=== PATIENT | male | born 1960 | race Caucasian/White ===

== ENCOUNTER 2017-10-12 12:42 | Emergency (ER) | END 2017-10-12 19:42 | disposition home or self-care (01) ==

== ENCOUNTER 2017-11-15 17:15 | Emergency (ER) | END 2017-11-16 02:38 | disposition home or self-care (01) ==

== ENCOUNTER 2019-01-15 20:17 | Inpatient (IN) | payer BC ==
[~2019-01-15] VITALS: Ht 167.6 cm; Wt 77.1 kg
[~2019-01-15 20:17] MED LIST: AMLO-218 PO; CPR3OO3.5 LEFT EYE; HYDR-3980 PO
--- NOTE | 2019-01-15 20:28 | ERD ---
ER Documentation Chief Complaint Chief Complaint Low blood pressure HPI The patient is a 58-year-old male, presenting to the ER because of low blood pressure, not eating for the last 4 days. He is under hospice care but the hospice nurse asked the family to call 911 to bring him to the hospital. He is unable to provide any history, the history is obtained from the EMS and medical record Past medical history: Cirrhosis, hypertension Past surgical history/SH/ROS: Unable to obtain due to his condition ROS All systems reviewed and are negative except as per history of present illness. Medications Home Meds Active Scripts Ciprofloxacin Opht* (Ciloxan*) 0.3%-3.5 Opht Oint, 1 APPLIC LEFT EYE TID, #1 EA Prov:LEKKOS,APOSTOLOS A. DO 10/12/17 Hydrocodone/Acetaminophen ([place] 10-325 Tablet) 1 Each Tablet, 1 TAB PO Q6H PRN for PAIN, #20 TAB Prov:LEKKOS,APOSTOLOS A. DO 10/12/17 Amlodipine Besylate* (Norvasc*) 10 Mg Tablet, 10 MG PO DAILY, #30 TAB Prov:LEKKOS,APOSTOLOS A. DO 10/12/17 Allergies Allergies: Coded Allergies: No Known Allergy (Unverified , 10/12/17) PMhx/Soc History of Surgery: Yes (neck) Anesthesia Reaction: No Hx Neurological Disorder: No Hx Respiratory Disorders: No Hx Cardiac Disorders: Yes (htn) Hx Psychiatric Problems: No Hx Miscellaneous Medical Probl: Yes Hx Alcohol Use: Yes Hx Substance Use: No Hx Tobacco Use: No Physical Exam Vitals Vital Signs Date Temp Pulse Resp B/P (MAP) Pulse Ox O2 O2 Flow FiO2 Time Delivery Rate 01/15/19 85 18 104/62 100 Room Air 22:30 (76) 01/15/19 99.0 69 18 127/68 97 20:28 (87) Physical Exam Const: No acute distress. Jaundice Head: Atraumatic. Eyes: Normal Conjunctiva. ENT: Normal External Ears, Nose and Mouth. Neck: Full range of motion. No meningismus. Resp: Clear to auscultation bilaterally. Cardio: Regular rate and rhythm. Abd: Soft, ascites, normal bowel sounds, non tender. Skin: No petechiae or rashes. Back: No midline or flank tenderness. Ext: Mild leg edema, no calf tenderness Neur: Awake. Limited due to his condition Psych: Unable to perform due to his condition Result Diagram: 01/15/19212101/15/192121 Results 24 hrs Laboratory Tests Test 01/15/19 21:22 01/15/19 21:46 White Blood Count 12.1 10^3/ul Red Blood Count 1.84 10^6/ul Hemoglobin 5.4 g/dl Hematocrit 15.4 % Mean Corpuscular Volume 83.7 fl Mean Corpuscular Hemoglobin 29.3 pg Mean Corpuscular Hemoglobin Concent 35.1 g/dl Red Cell Distribution Width 19.5 % Platelet Count 111 10^3/UL Mean Platelet Volume 11.4 fl Immature Granulocytes % 0.700 % Neutrophils % 65.7 % Lymphocytes % 20.1 % Monocytes % 11.9 % Eosinophils % 1.1 % Basophils % 0.5 % Nucleated Red Blood Cells % 0.0 /100WBC Immature Granulocytes # 0.090 10^3/ul Neutrophils # 8.0 10^3/ul Lymphocytes # 2.4 10^3/ul Monocytes # 1.4 10^3/ul Eosinophils # 0.1 10^3/ul Basophils # 0.1 10^3/ul Nucleated Red Blood Cells # 0.0 10^3/ul Prothrombin Time 26.7 Sec Prothrombin Time Ratio 2.1 INR International Normalized Ratio 2.46 Activated Partial Thromboplast Time 49.9 Sec Sodium Level 140 mmol/L Potassium Level 4.5 mmol/L Chloride Level 114 mmol/L Carbon Dioxide Level 14 mmol/L Anion Gap 12 Blood Urea Nitrogen 46 mg/dl Creatinine 4.70 mg/dl Est Glomerular Filtrat Rate mL/min 13 mL/min Glucose Level 112 mg/dl Calcium Level 8.3 mg/dl Total Bilirubin 2.8 mg/dl Direct Bilirubin 1.10 mg/dl Indirect Bilirubin 1.7 mg/dl Aspartate Amino Transf (AST/SGOT) 75 IU/L Alanine Aminotransferase (ALT/SGPT) 31 IU/L Alkaline Phosphatase 125 IU/L Ammonia 38 umol/l Total Protein 6.2 g/dl Albumin 2.4 g/dl Globulin 3.80 g/dl Albumin/Globulin Ratio 0.63 Lipase 69 U/L Ethyl Alcohol Level < 10.0 mg/dl Bedside Urine pH (LAB) 5.5 Bedside Urine Protein (LAB) 1+ Bedside Urine Glucose (UA) Negative Bedside Urine Ketones (LAB) Trace Bedside Urine Blood Negative Bedside Urine Nitrite (LAB) Negative Bedside Urine Leukocyte Esterase (L Negative Procedures/MDM [place] [id number] Radiology Main Line: [phone] DIAGNOSTIC IMAGING REPORT Patient: LESLY KNUTSON : 1960 Age: 58 Sex: M MR #: [id number] DOS: 01/15/192032 Ordering MD: DONOVAN GOTTLIEB MD Location: E/R Room/Bed: PROCEDURE: XR Chest. TECHNIQUE: Single frontal radiograph. CLINICAL INDICATION: Abdominal Pain COMPARISON: DR OCMER 11/15/2017. FINDINGS: There is effacement of the left hemidiaphragm and costophrenic angle with increased retrocardiac opacity consistent with a combination of pleural effusion and atelectasis / consolidation. There is adjacent atelectasis in the aerated left lung with layering of the pleural effusion elevation of the right hemidiaphragm with low lung volumes. No pneumothorax. Cardiac silhouette likely remains enlarged, though the lateral inferior cardiac borders are obscured. No acute osseous abnormality identified within the visualized thorax. Overlying soft tissues are equally unremarkable. IMPRESSION: Left pleural effusion and adjacent atelectasis / consolidation with effacement of the left costophrenic angle and increased retrocardiac opacity. Low lung volumes with elevation of the right hemidiaphragm. Cardiomegaly, with obscuration of the left lateral and inferior cardiac borders. RPTAT: EE Physician [place] Date Time Electronically viewed and signed by Physician Africa on 01/15/2019 21:03 BP/ CC: DONOVAN GOTTLIEB MD [phone] MEDICAL MAKING DECISION: The patient is a 58-year-old male, presenting with acute symptomatic anemia, left pleural effusion, acute kidney injury, pancytopenia. I have ordered to transfer the patient 2 unit of packed red blood cell The differential diagnoses considered include but are not limited to end-stage liver disease, metabolic encephalopathy, hepatic encephalopathy, electrolyte imbalance, gastrointestinal bleeding Departure Diagnosis: Primary Impression: Symptomatic anemia Additional Impressions: Pleural effusion, left KARY (acute kidney injury) Pancytopenia Coagulopathy Condition: Serious Comments I discussed the findings with the patient. I am waiting for the hospitalist to admit the patient Disclaimer: Inadvertent spelling and grammatical errors are likely due to EHR/dictation software use and do not reflect on the overall quality of patient care. Also, please note that the electronic time recorded on this note does not necessarily reflect the actual time of the patient encounter. DONOVAN GOTTLIEB MD Jan 15, 2019 20:28
[2019-01-16] VITALS (19 sets, daily range): BP systolic 121–140; BP diastolic 61–80; PULSE 52–76; RESP 18–20; Ht 167.6 cm; Wt 77.1 kg
[2019-01-16] MEDS ORDERED: FURO20TA3 PO (00:07)
[2019-01-16] MEDS ORDERED: ACET325T45 PO (00:07)
[2019-01-16] MEDS ORDERED: FLUD0.1T10 PO (00:07)
[2019-01-16] MEDS ORDERED: HYOS0.1297 PO (00:07)
[2019-01-16] MEDS ORDERED: LACT20SO2 PO (00:07)
[2019-01-16] MEDS ORDERED: FAMO20TA18 PO (00:07)
[2019-01-16] MEDS ORDERED: LORA0.5T PO (00:07)
[2019-01-16] MEDS ORDERED: POTA20TA15 PO (00:07)
[2019-01-16] MEDS ORDERED: ACETAMINOPHEN 325 MG TAB PO PRN (04:00)
[2019-01-16] MEDS ORDERED: LORAZEPAM 0.5 MG TAB PO PRN (04:00)
[2019-01-16] MEDS: HYOSCYAMINE 0.125 MG SUBL TAB PO SCH (08:36)
[2019-01-16] MEDS ORDERED: POTASSIUM CHLORIDE (SR) 20 MEQ TAB PO SCH (09:00)
[2019-01-16] MEDS ORDERED: FUROSEMIDE 20 MG TAB PO SCH (09:00)
[2019-01-16] MEDS ORDERED: FAMOTIDINE 20 MG TAB PO SCH (09:00)
[2019-01-16] MEDS ORDERED: LACTULOSE 30ML CUP PO SCH (09:00)
--- NOTE | 2019-01-16 09:33 | CONS ---
Assessment/Plan Assessment/Plan Assessment/Plan (Daily) 1. Severe symptomatic anemia concerned about GI bleeding 2. acute kidney injury on CKD due to possible poor renal perfusion from decompensated liver cirrhosis vs Type II HRS 3. Symptomatic ascites s/p US guided paracentesis on 01/16/19- 6.9 L removed 4. ESLD with ascites 5. Decompensated liver cirrhosis 6. H/o Alcoholic liver cirrhosis 7. Coagulopathy due to liver cirrhosis Plan: Seen in MEd/surge floor, s/p paracentesis 6.9 L removed will give albumin 25% 100ml Q 8 hr x 6 doses vitamin K 10mg IV X 1 dose now Vitamin K 10mg po daily x 3 doses for coagulopathy Hold off on lasix and KCL for now no acute indication for HD now, [facility] Thanks for consultaiton pt will be covered by Dr. Ezra Adams from 01/17/19 until I come back Consultation Date/Type/Reason Admit Date/Time Jan 16, 2019 at 00:19 Date of Consultation: Jan 16, 2019 Type of Consult NEPHROLOGY Reason for Consultation acute renal failure Requesting Provider: RACHEL CRUZ MD Date/Time of Note DATE: 01/16/19 TIME: 09:32 Hx of Present Illness 58 years old male with history of decompensated alcoholic liver cirrhosis with recent admission to [facility] for fall which was complicated by hepatorenal syndrome and ascites requiring large volume paracentesis x2. He was discharged to senior living facility on 12/30. Patient returned to the emergency room at [facility] with hypotension and poor p.o. tolerance for 4 days. He was noted to be anemic with hemoglobin 5.4. He was admitted for further management of symptomatic anemia. Patient denies any recent GI bleeding. On admisison BUN/Cr 46/4.7, K 4.5, HCo3 14- Renal has been consulted for acute vs acute on chronic renal failure, possible hepatorenal syndrome, Constitutional: poor po, other (low BP ) Past Medical History Medical History: other (Live cirrhosis, ESLD , ascites ) Home Meds Reported Medications Potassium Chloride* (K-Dur*) 20 Meq Tab.prt.sr, 20 MEQ PO DAILY TAKE 1 TABLET BY MOUTH ONCE DAILY 01/16/19 Famotidine* (Famotidine*) 20 Mg Tablet, 20 MG PO DAILY TAKE 1 TABLET BY MOUTH ONCE DAILY 01/16/19 Furosemide* (Furosemide*) 20 Mg Tablet, 20 MG PO DAILY for 30 Days, #30 TAKE 1 TABLET BY MOUTH ONCE DAILY 01/16/19 Hyoscyamine Sulfate* (Hyoscyamine Sulfate*) 0.125 Mg Tab.subl, 0.125 MG PO DAILY for 30 Days, #30 TAKE 1 TABLET SUBLINGUALLY EVERY 4 HOURS NEEDED FOR SECRETIONS 01/16/19 Acetaminophen* (Acetaminophen*) 325 Mg Tablet, 650 MG PO DAILY PRN for PAIN for 7 Days, #14 TAKE 2 TABLETS BY MOUTH EVERY 6 HOURS NEEDED FOR FEVER OR MILD PAIN 01/16/19 Lorazepam* (Lorazepam*) 0.5 Mg Tablet, 0.5 MG PO Q4H PRN for ANXIETY TAKE 1 TABLET SUBLINGUALLY EVERY 4 HOURS NEEDED FOR ANXIETY 01/16/19 Lactulose* (Lactulose*) 20 Gm/30 Ml Solution, 20 GM PO TID, ML 01/16/19 Fludrocortisone* (Fludrocortisone*) 0.1 Mg Tablet, 0.2 MG PO DAILY, TAB TAKE 2 TABS BY MOUTH DAILY 01/16/19 Discontinued Scripts Ciprofloxacin Opht* (Ciloxan*) 0.3%-3.5 Opht Oint, 1 APPLIC LEFT EYE TID, #1 EA Prov:JAMES BENNETT DO 10/12/17 Hydrocodone/Acetaminophen ([place] 10-325 Tablet) 1 Each Tablet, 1 TAB PO Q6H PRN for PAIN, #20 TAB Prov:JAMES BENNETT DO 10/12/17 Amlodipine Besylate* (Norvasc*) 10 Mg Tablet, 10 MG PO DAILY, #30 TAB Prov:JAMES BENNETT. DO 10/12/17 Medications Current Medications Acetaminophen (Tylenol Tab) 650 mg DAILY PRN PO PAIN; Start 01/16/19 at 04:00 Famotidine (Pepcid) 20 mg DAILY PO Last administered on 01/16/19at 08:35; Admin Dose 20 MG; Start 01/16/19 at 09:00 Furosemide (Lasix) 20 mg DAILY PO Last administered on 01/16/19at 08:36; Admin Dose 20 MG; Start 01/16/19 at 09:00 Hyoscyamine (Levsin (Sl)) 0.125 mg DAILY PO Last administered on 01/16/19at 08:36; Admin Dose 0.125 MG; Start 01/16/19 at 09:00 Lactulose (Enulose) 20 gm TID PO Last administered on 01/16/19at 08:36; Admin Dose 20 GM; Start 01/16/19 at 09:00 Lorazepam (Ativan) 0.5 mg Q4H PRN PO ANXIETY; Start 01/16/19 at 04:00 Potassium Chloride (Klor-Con 20) 20 meq DAILY PO Last administered on 01/16/19at 08:36; Admin Dose 20 MEQ; Start 01/16/19 at 09:00 Allergies: Coded Allergies: No Known Allergy (Unverified , 01/15/19) Past Surgical History Past Surgical Hx: other (paracentesis x 2 ) Social History Alcohol Use: none Smoking Status: Former smoker Drug Use: none Exam/Review of Systems Exam Vitals Vital Signs Date Temp Pulse Resp B/P (MAP) Pulse Ox O2 O2 Flow FiO2 Time Delivery Rate 01/16/19 98.2 75 18 129/66 100 03:10 (87) 01/16/19 Room Air 02:49 Intake and Output 01/15/19 01/15/19 01/16/19 1515:00 23:00 07:00 IntakeIntake Total 350 ml BalanceBalance 350 ml Constitutional: distress, frail, other Psych: confusion, other (lethrargic ) Neck: supple, non-tender Respiratory: congested cough, diminished breath sounds Cardiovascular: regular rate and rhythm, nl pulses Gastrointestinal: soft, ascites, distended Musculoskeletal: muscle weakness, swelling (2-3+ pitting edema ) Extremities: normal pulses Neurological: confused, lethargic Results Result Diagram: 01/15/19212101/15/192121 Results 24hrs Laboratory Tests Test 01/15/19 21:22 01/15/19 21:36 01/15/19 21:46 White Blood Count 12.1 H Red Blood Count 1.84 #L Hemoglobin 5.4 #*L Hematocrit 15.4 #L Mean Corpuscular Volume 83.7 Mean Corpuscular Hemoglobin 29.3 Mean Corpuscular Hemoglobin Concent 35.1 Red Cell Distribution Width 19.5 #H Platelet Count 111 #L Mean Platelet Volume 11.4 H Immature Granulocytes % 0.700 H Neutrophils % 65.7 Lymphocytes % 20.1 Monocytes % 11.9 H Eosinophils % 1.1 Basophils % 0.5 Nucleated Red Blood Cells % 0.0 Immature Granulocytes # 0.090 H Neutrophils # 8.0 H Lymphocytes # 2.4 Monocytes # 1.4 H Eosinophils # 0.1 Basophils # 0.1 Nucleated Red Blood Cells # 0.0 Prothrombin Time 26.7 H Prothrombin Time Ratio 2.1 INR International Normalized Ratio 2.46 Activated Partial Thromboplast Time 49.9 H Sodium Level 140 Potassium Level 4.5 Chloride Level 114 H Carbon Dioxide Level 14 L Anion Gap 12 Blood Urea Nitrogen 46 H Creatinine 4.70 H Est Glomerular Filtrat Rate mL/min 13 L Glucose Level 112 Calcium Level 8.3 L Total Bilirubin 2.8 H Direct Bilirubin 1.10 H Indirect Bilirubin 1.7 H Aspartate Amino Transf (AST/SGOT) 75 H Alanine Aminotransferase (ALT/SGPT) 31 Alkaline Phosphatase 125 H Ammonia 38 H Total Protein 6.2 Albumin 2.4 L Globulin 3.80 H Albumin/Globulin Ratio 0.63 Lipase 69 Ethyl Alcohol Level < 10.0 H Urine Opiates Screen POSITIVE Urine Barbiturates NEGATIVE Urine Amphetamines Screen NEGATIVE Urine Benzodiazepines Screen NEGATIVE Urine Cocaine Screen NEGATIVE Urine Cannabinoids NEGATIVE Bedside Urine pH (LAB) 5.5 Bedside Urine Protein (LAB) 1+ H Bedside Urine Glucose (UA) Negative Bedside Urine Ketones (LAB) Trace H Bedside Urine Blood Negative Bedside Urine Nitrite (LAB) Negative Bedside Urine Leukocyte Esterase (L Negative Medications Medication Current Medications Acetaminophen (Tylenol Tab) 650 mg DAILY PRN PO PAIN; Start 01/16/19 at 04:00 Famotidine (Pepcid) 20 mg DAILY PO Last administered on 01/16/19 08:35; Admin Dose 20 MG; Start 01/16/19 at 09:00 Furosemide (Lasix) 20 mg DAILY PO Last administered on 01/16/19 08:36; Admin Dose 20 MG; Start 01/16/19 at 09:00 Hyoscyamine (Levsin (Sl)) 0.125 mg DAILY PO Last administered on 01/16/19 08:36; Admin Dose 0.125 MG; Start 01/16/19 at 09:00 Lactulose (Enulose) 20 gm TID PO Last administered on 01/16/19 08:36; Admin Dose 20 GM; Start 01/16/19 at 09:00 Lorazepam (Ativan) 0.5 mg Q4H PRN PO ANXIETY; Start 01/16/19 at 04:00 Potassium Chloride (Klor-Con 20) 20 meq DAILY PO Last administered on 01/16/19at 08:36; Admin Dose 20 MEQ; Start 01/16/19 at 09:00 BROOKS LUNA MD Jan 16, 2019 09:33
--- NOTE | 2019-01-16 10:38 | HP ---
Date/Time of Note Date/Time of Note DATE: 01/16/19 TIME: 10:36 Assessment/Plan VTE Prophylaxis SCD applied (from Nsg): Yes Pharmacological prophylaxis: NA/contraindicated Pharm contraindication: bleeding Lines/Catheters IV Catheter Type (from Nrsg): Peripheral IV Urinary Cath still in place: Yes Reason Cath still needed: terminal illness/intractable pain Assessment/Plan Hospital Course 58 years old male with decompensated alcoholic liver cirrhosis who presented with symptomatic anemia, tense ascites and hepatorenal syndrome. #Symptomatic anemia - Rule out GI bleeding due to portal hypertensive gastropathy, given history of liver cirrhosis, GI consulted - 3 units PRBC to be transfused - PPI for prophylaxis -prophylactic ceftriaxone # Coagulopathy due to decompensated cirrhosis - Monitor -Vitamin K and FFP in case of profuse bleeding # KARY (acute kidney injury) #Hepatorenal syndrome -Renal consult: IV albumin infusion and paracentesis ordered #Hyperammonemia -Lactulose and rifaximin #Ascites -Centesis and albumin infusion #PPX: PPI and SCDs Problems: (1) Symptomatic anemia Status: Acute (2) KARY (acute kidney injury) Status: Acute (3) Hepatorenal syndrome (4) Coagulopathy Status: Acute (5) Hyperammonemia (6) Alcoholic cirrhosis of liver (7) Ascites (8) Anasarca (9) Pleural effusion, left Status: Acute Result Diagram: 01/15/19212101/15/192121 Results 24hrs Laboratory Tests Test 01/15/19 21:22 01/15/19 21:36 01/15/19 21:46 01/16/19 09:57 White Blood Count 12.1 H Red Blood Count 1.84 #L Hemoglobin 5.4 #*L Hematocrit 15.4 #L Mean Corpuscular 83.7 Volume Mean Corpuscular 29.3 Hemoglobin Mean Corpuscular 35.1 Hemoglobin Concen t Red Cell 19.5 #H Distribution Width Platelet Count 111 #L Mean Platelet 11.4 H Volume Immature 0.700 H Granulocytes % Neutrophils % 65.7 Lymphocytes % 20.1 Monocytes % 11.9 H Eosinophils % 1.1 Basophils % 0.5 Nucleated Red 0.0 Blood Cells % Immature 0.090 H Granulocytes # Neutrophils # 8.0 H Lymphocytes # 2.4 Monocytes # 1.4 H Eosinophils # 0.1 Basophils # 0.1 Nucleated Red 0.0 Blood Cells # Prothrombin Time 26.7 H Prothrombin Time 2.1 Ratio INR International 2.46 Normalized Ratio Activated 49.9 H Partial Thrombopl ast Time Sodium Level 140 Potassium Level 4.5 Chloride Level 114 H Carbon Dioxide 14 L Level Anion Gap 12 Blood Urea 46 H Nitrogen Creatinine 4.70 H Est Glomerular 13 L Filtrat Rate mL/min Glucose Level 112 Calcium Level 8.3 L Total Bilirubin 2.8 H Direct Bilirubin 1.10 H Indirect 1.7 H Bilirubin Aspartate Amino 75 H Transf (AST/SGOT) Alanine 31 Aminotransferase (ALT/SGPT) Alkaline 125 H Phosphatase Ammonia 38 H Total Protein 6.2 Albumin 2.4 L Globulin 3.80 H Albumin/Globulin 0.63 Ratio Lipase 69 Ethyl Alcohol < 10.0 H Level Urine Opiates POSITIVE Screen Urine NEGATIVE Barbiturates Urine NEGATIVE Amphetamines Screen Urine NEGATIVE Benzodiazepines Screen Urine Cocaine NEGATIVE Screen Urine NEGATIVE Cannabinoids Bedside Urine pH 5.5 (LAB) Bedside Urine 1+ H Protein (LAB) Bedside Urine Negative Glucose (UA) Bedside Urine Trace H Ketones (LAB) Bedside Urine Negative Blood Bedside Urine Negative Nitrite (LAB) Bedside Urine Negative Leukocyte Esteras e (L Lab Scanned BLOOD TRANSFUSIO Report N HPI/ROS Admit Date/Time Admit Date/Time Jan 16, 2019 at 00:19 Hx of Present Illness 58 years old male with history of decompensated alcoholic liver cirrhosis with recent admission to [facility] for fall which was complicated by hepa torenal syndrome and ascites requiring large volume paracentesis x2. [facility] was [facility] on 12/30. Patient returned to the emergency room at [facility] with hypotension and poor p.o. tolerance for 4 days. He was noted to be anemic with hemoglobin 5.4. He was admitted for further management of symptomatic anemia. Patient denies any recent GI bleeding. He denies hematochezia, melena, hematemesis. Denies hematuria. PMH/Family/Social Past Medical History Medications Current Medications Acetaminophen (Tylenol Tab) 650 mg DAILY PRN PO PAIN; Start 01/16/19 at 04:00 Famotidine (Pepcid) 20 mg DAILY PO Last administered on 01/16/19at 08:35; Admin Dose 20 MG; Start 01/16/19 at 09:00 Furosemide (Lasix) 20 mg DAILY PO Last administered on 01/16/19at 08:36; Admin Dose 20 MG; Start 01/16/19 at 09:00 Hyoscyamine (Levsin (Sl)) 0.125 mg DAILY PO Last administered on 01/16/19at 08:36; Admin Dose 0.125 MG; Start 01/16/19 at 09:00 Lorazepam (Ativan) 0.5 mg Q4H PRN PO ANXIETY; Start 01/16/19 at 04:00 Potassium Chloride (Klor-Con 20) 20 meq DAILY PO Last administered on 01/16/19at 08:36; Admin Dose 20 MEQ; Start 01/16/19 at 09:00 Lactulose (Enulose) 30 gm Q6 PO ; Start 01/16/19 at 12:00 Coded Allergies: No Known Allergy (Unverified , 01/15/19) Social History Smoking Status: Former smoker Exam/Review of Systems Vital Signs Vitals Vital Signs Date Temp Pulse Resp B/P (MAP) Pulse Ox O2 O2 Flow FiO2 Time Delivery Rate 01/16/19 97.8 76 18 121/72 94 Room Air 09:34 (88) Intake and Output 01/15/19 01/15/19 01/16/19 1515:00 23:00 07:00 IntakeIntake Total 350 ml BalanceBalance 350 ml Exam Exam Gen.: In no acute distress, pleasant and cooperative, debilitated and cachectic Eyes: icteric, conjunctiva pale, PERRLA, EOM intact HEENT: Normocephalic, atraumatic, hearing grossly intact, oral mucosa dry, no oral lesions, bitemporal wasting Neck: Supple, no masses, trachea midline Cardiovascular: Regular rate and rhythm, there is peripheral edema, no murmurs, no gallops, no rubs Respiratory: Clear to auscultation bilaterally, no use of accessory muscles of respiration, no wheezes, expiration not prolonged Extremities: No cyanosis, severe bilateral lower extremity edema, no calf tenderness, pulses bilaterally palpable, extremities warm and perfused Abdomen: Hard, distended, nontender, bowel sounds present, no guarding, no rebound Neurological: Alert and oriented x3, speech normal, CN 2-12 no deficit, no motor or sensory deficit, : Lua catheter containing dark yellow urine Heme: No acute bleeding, Psych: No anxiety depression, mood and affect appropriate RACHEL CRUZ MD Jan 16, 2019 10:38
[2019-01-16] MEDS: ALBUMIN HUMAN 25% 100 ML IV SCH ×2 (11:00→20:17)
[2019-01-16] MEDS ORDERED: PHYTONADIONE 10 MG in DEXTROSE 5% 50 ML IVPB ONE (11:00)
[2019-01-16] MEDS: LACTULOSE 30ML CUP PO SCH ×3 (12:00→23:52)
[2019-01-16] MEDS ORDERED: LIDOCAINE 1% (MPF) 5 ML VIAL ONE (12:20)
[2019-01-16] MEDS: CEFTRIAXONE 1 GM/50 ML (PMX) 50 ML IVPB SCH (16:12)
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
[2019-01-16] MEDS ORDERED: PANTOPRAZOLE 40 MG INJ IV SCH (18:00)
[2019-01-16] MEDS: RIFAXIMIN 550 MG TAB PO SCH (20:46)
[2019-01-16] MEDS: CITRIC ACID/NA CITRATE 30 ML CUP PO SCH (20:46)
[2019-01-16] MEDS: ONDANSETRON 4 MG INJ IV PRN (22:56)
[2019-01-17 02:20] VITALS: BP 135/70; PULSE 66; RESP 18
[2019-01-17] MEDS: ALBUMIN HUMAN 25% 100 ML IV SCH ×2 (03:29→10:42)
[2019-01-17] MEDS ORDERED: FAMOTIDINE 20 MG INJ IV SCH (06:00)
[2019-01-17] MEDS: LACTULOSE 30ML CUP PO SCH ×2 (06:04→11:24)
[2019-01-17 08:00] VITALS: BP 139/68; PULSE 72; RESP 17
[2019-01-17] MEDS: ONDANSETRON 4 MG INJ IV PRN (08:47)
[2019-01-17] MEDS ORDERED: PHYTONADIONE (1 MG/ML PO SYG) PO SCH (09:00)
[2019-01-17] MEDS: RIFAXIMIN 550 MG TAB PO SCH (09:00)
[2019-01-17] MEDS: CITRIC ACID/NA CITRATE 30 ML CUP PO SCH (09:00)
[2019-01-17] MEDS: HYOSCYAMINE 0.125 MG SUBL TAB PO SCH (09:00)
--- NOTE | 2019-01-17 09:07 | PN ---
DATE: 01/17/2019 NEPHROLOGY PROGRESS NOTE: Covering for Dr. Ronald Bailey. SUBJECTIVE: The patient remains weak, lethargic. Overnight, the patient was having nausea, vomiting . No reports of hemoptysis, hematemesis or hematochezia. OBJECTIVE: VITAL SIGNS: Blood pressure is 135/70, respiration 18, pulse 66, temperature 98.2. HEENT: Head is normocephalic. NECK: Supple. HEART: Regular rate. LUNGS: Show diminished breath sounds at the base. ABDOMEN: Distended, soft. No rebound or guarding. EXTREMITIES: Negative for clubbing, cyanosis. Positive edema. DERMATOLOGIC: No rashes. MUSCULOSKELETAL: No joint effusions. NEUROLOGIC: No change in exam. No obvious focal deficits. MEDICATIONS: Have been reviewed. LABORATORY DATA: Has been reviewed. IMAGING STUDIES: Have been reviewed. Please note patient had paracentesis yesterday with approximately 7 liters removed. ASSESSMENT AND PLAN: This is a 58-year-old male who presents with: 1. Nonoliguric acute kidney injury on top of chronic kidney disease. Etiology of acute kidney injur y is concerning for possible hepatorenal syndrome. Other possibilities such as tubular injury or int erstitial nephritis and volume depletion need to also be ruled out. Plan at this point is to check a UA with microanalysis, check urine electrolytes. We will quantify patient's proteinuria. We will a lso check a renal ultrasound to evaluate renal parenchyma, given that hepatorenal syndrome is a diagn osis of exclusion. At this point, would continue current treatment plan with volume expansion. Will monitor renal function closely. Will need to further clarify goals of care with primary care team. 2. Anemia. Continue to monitor hemoglobin and hematocrit levels. 3. Metabolic acidosis secondary to acute kidney injury. The patient is currently on Bicitra, will c ontinue. 4. Systemic inflammatory response syndrome. Continue to monitor. Follow up cultures. 5. End-stage liver disease. The patient is currently decompensated with ascites. Status post parac entesis. Will continue to monitor. Continue volume expansion. 6. Nausea, vomiting. Etiology may be multifactorial, possible uremia, possible bowel edema. Will c ontinue to monitor. 7. Coagulopathy secondary to cirrhosis. The patient is status post vitamin K. . Dictated By: FAUSTINO SORIA/RASHEED Conf#: [id number] [facility]#: [id number] CC: DAQUAN MENDIOLA MD;*End*
[2019-01-17] MEDS ORDERED: ALBUMIN HUMAN 25% 100 ML IV SCH (09:30)
--- NOTE | 2019-01-17 11:05 | PN ---
Date/Time of Note Date/Time of Note DATE: 01/17/19 TIME: 10:56 Assessment/Plan VTE Prophylaxis Risk score (from Nsg)>0 risk: 4 SCD applied (from Nsg): Yes Pharmacological prophylaxis: other (scds) Lines/Catheters IV Catheter Type (from Nrsg): Peripheral IV Urinary Cath still in place: Yes Reason Cath still needed: other (indicate) (scds) Assessment/Plan Hospital Course Summary Assessment and Plan: Assessment: Symptomatic anemia Decompensated alcoholic liver cirrhosis -Status post paracentesis 01/16/2019 with removal of 6900 mL Elevated LFTs with a slightly higher indirect versus direct hyperbilirubinemia Coagulopathy due to decompensated cirrhosis KARY Plan: Spoke to family and hospice nurse- plan for pleural catheter placement and transfer patient back to SNF on hospice No plan for EGDE/colonoscopy- GI will sign off but will be available upon recon sult Patient is seen in collaboration with Dr. Carrillo Subjective: Course reviewed with nursing staff Patient interviewed and examined All labs, imaging and other results reviewed The patient alert resting in bed Family at bedside. No over night events PHYSICAL EXAMINATION: GENERAL: Alert & oriented x 3, in no acute distress SKIN: No lesions, HEAD: Normocephalic, atraumatic, no tenderness. EYES: Pupils equal reactive to light and accommodation, no discharge. EARS/NOSE AND THROAT: Ears normal, nose normal, oropharynx normal. NECK: Supple, no masses CHEST: Inspection within normal limits. CARDIOVASCULAR: Heart: Regular rate and rhythm RESPIRATORY: Lungs clear to auscultation and percussion, no wheezing, no rubs GASTROINTESTINAL AND LIVER: Abdomen: Soft, non tenderness, non-distended, no hernias, no masses, no organomegaly, no ascites, no guarding, no rebound tenderness, normoactive bowel sounds. Rectal: Deferred. EXTREMITIES: No cyanosis, clubbing or edema. Result Diagram: 01/17/19 0454 01/17/19 0454 Results 24hrs Laboratory Tests Test 01/16/19 12:00 01/16/19 19:02 01/17/19 04:54 01/17/19 06:34 Body Fluid Type PARACENTHESIS Body Fluid 1100.0 Volume Body Fluid Color YELLOW Body Fluid HAZY Appearance Body Fluid WBC 85 Body Fluid RBC 1000 (Auto) Body Fluid 29.4 Polynuclear WBCs (%) Body Fluid 70.6 Mononuclear Cells % Auto White Blood 13.3 H 15.7 H Count Red Blood Count 3.59 #L 3.60 L Hemoglobin 10.2 #L 10.4 L Hematocrit 29.2 #L 29.5 L Mean Corpuscular 81.3 L 81.9 L Volume Mean Corpuscular 28.4 L 28.9 L Hemoglobin Mean Corpuscular 34.9 35.3 Hemoglobin Ilana nt Red Cell 17.1 H 17.3 H Distribution Width Platelet Count 101 L 97 L Mean Platelet 11.4 H 11.2 H Volume Immature 0.500 H 0.600 H Granulocytes % Neutrophils % 61.8 80.2 H Lymphocytes % 24.5 10.6 L Monocytes % 10.9 8.1 Eosinophils % 1.8 0.2 Basophils % 0.5 0.3 Nucleated Red 0.0 0.0 Blood Cells % Immature 0.070 H 0.090 H Granulocytes # Neutrophils # 8.2 H 12.6 H Lymphocytes # 3.3 H 1.7 Monocytes # 1.5 H 1.3 H Eosinophils # 0.2 0.0 Basophils # 0.1 0.1 Nucleated Red 0.0 0.0 Blood Cells # Sodium Level 143 Potassium Level 4.4 Chloride Level 112 H Carbon Dioxide 15 L Level Anion Gap 16 H Blood Urea 47 H Nitrogen Creatinine 4.95 H Est Glomerular 12 L Filtrat Rate mL/min Glucose Level 123 Calcium Level 8.9 Phosphorus Level 6.6 H Magnesium Level 2.7 H Total Bilirubin 5.2 #H Direct Bilirubin 2.90 #H Indirect 2.3 H Bilirubin Aspartate Amino 90 H Transf (AST/SGOT ) Alanine 34 Aminotransferase (ALT/SGPT) Alkaline 142 H Phosphatase Total Protein 6.8 Albumin 3.2 L Globulin 3.60 H Albumin/Globulin 0.88 Ratio Lab Scanned BLOOD TRANSFUSI Report ON Exam/Review of Systems Exam Vitals Vital Signs Date Temp Pulse Resp B/P (MAP) Pulse Ox O2 O2 Flow FiO2 Time Delivery Rate 01/17/19 97.5 72 17 139/68 100 Room Air 08:00 (91) Intake and Output 01/16/19 01/16/19 01/17/19 1515:00 23:00 07:00 IntakeIntake Total 240 ml 400 ml 100 ml OutputOutput Total 200 ml BalanceBalance 240 ml 200 ml 100 ml Results Results 24hrs Laboratory Tests Test 01/16/19 12:00 01/16/19 19:02 01/17/19 04:54 01/17/19 06:34 Body Fluid Type PARACENTHESIS Body Fluid 1100.0 Volume Body Fluid Color YELLOW Body Fluid HAZY Appearance Body Fluid WBC 85 Body Fluid RBC 1000 (Auto) Body Fluid 29.4 Polynuclear WBCs (%) Body Fluid 70.6 Mononuclear Cells % Auto White Blood 13.3 H 15.7 H Count Red Blood Count 3.59 #L 3.60 L Hemoglobin 10.2 #L 10.4 L Hematocrit 29.2 #L 29.5 L Mean Corpuscular 81.3 L 81.9 L Volume Mean Corpuscular 28.4 L 28.9 L Hemoglobin Mean Corpuscular 34.9 35.3 Hemoglobin Ilana nt Red Cell 17.1 H 17.3 H Distribution Width Platelet Count 101 L 97 L Mean Platelet 11.4 H 11.2 H Volume Immature 0.500 H 0.600 H Granulocytes % Neutrophils % 61.8 80.2 H Lymphocytes % 24.5 10.6 L Monocytes % 10.9 8.1 Eosinophils % 1.8 0.2 Basophils % 0.5 0.3 Nucleated Red 0.0 0.0 Blood Cells % Immature 0.070 H 0.090 H Granulocytes # Neutrophils # 8.2 H 12.6 H Lymphocytes # 3.3 H 1.7 Monocytes # 1.5 H 1.3 H Eosinophils # 0.2 0.0 Basophils # 0.1 0.1 Nucleated Red 0.0 0.0 Blood Cells # Sodium Level 143 Potassium Level 4.4 Chloride Level 112 H Carbon Dioxide 15 L Level Anion Gap 16 H Blood Urea 47 H Nitrogen Creatinine 4.95 H Est Glomerular 12 L Filtrat Rate mL/min Glucose Level 123 Calcium Level 8.9 Phosphorus Level 6.6 H Magnesium Level 2.7 H Total Bilirubin 5.2 #H Direct Bilirubin 2.90 #H Indirect 2.3 H Bilirubin Aspartate Amino 90 H Transf (AST/SGOT ) Alanine 34 Aminotransferase (ALT/SGPT) Alkaline 142 H Phosphatase Total Protein 6.8 Albumin 3.2 L Globulin 3.60 H Albumin/Globulin 0.88 Ratio Lab Scanned BLOOD TRANSFUSI Report ON Medications Medication Current Medications Acetaminophen (Tylenol Tab) 650 mg DAILY PRN PO PAIN; Start 01/16/19 at 04:00 Hyoscyamine (Levsin (Sl)) 0.125 mg DAILY PO Last administered on 01/16/19 08:36; Admin Dose 0.125 MG; Start 01/16/19 at 09:00 Lorazepam (Ativan) 0.5 mg Q4H PRN PO ANXIETY; Start 01/16/19 at 04:00 Lactulose (Enulose) 30 gm Q6 PO Last administered on 01/17/19 06:04; Admin Dose 30 GM; Start 01/16/19 at 12:00 Albumin Human 100 ml @ 100 mls/hr Q8H IV Last administered on 01/17/19 10:42; Admin Dose 100 MLS/HR; Start 01/16/19 at 11:00; Stop 01/18/19 at 03:59 Citric Acid/ Sodium Citrate (Bicitra) 30 ml BID PO Last administered on 01/16/19 20:46; Admin Dose 30 ML; Start 01/16/19 at 21:00 Phytonadione (Vitamin K) 10 mg DAILY PO ; Start 01/17/19 at 09:00; Stop 01/20/19 at 12:00 Ceftriaxone Sodium 50 ml @ 100 mls/hr Q24H IVPB Last administered on 01/16/19 16:12; Admin Dose 100 MLS/HR; Start 01/16/19 at 15:30 Rifaximin (Xifaxan) 550 mg BID PO Last administered on 01/16/19 20:46; Admin Dose 550 MG; Start 01/16/19 at 21:00 Ondansetron HCl (Zofran Inj) 4 mg Q4H PRN IV NAUSEA AND/OR VOMITING Last administered on 01/17/19 08:47; Admin Dose 4 MG; Start 01/16/19 at 23:00 Famotidine (Pepcid Iv) 20 mg DAILY@0600 IV Last administered on 01/17/19 06:10; Admin Dose 20 MG; Start 01/17/19 at 06:00 DIANA NOBLES Jan 17, 2019 11:05
[2019-01-17 14:00] VITALS: BP 118/58; PULSE 68; RESP 18
[2019-01-17] MEDS: CEFTRIAXONE 1 GM/50 ML (PMX) 50 ML IVPB SCH (15:19)
--- NOTE | 2019-01-17 16:49 | CONS ---
Assessment/Plan Assessment/Plan Assessment/Plan (Daily) Compensated end-stage renal disease secondary to alcoholic liver disease and cirrhosis Massive ascites status post paracentesis Hepatorenal syndrome Mental status changes secondary to the above Last drink 4 months ago story possibly unreliable Coagulopathy Hyperbilirubinemia Emaciated Low palliative performance scale Agree with hospice care I have noticed that there is no CODE STATUS on patient that should be addressed at the shelter facility patient is in the process of being transported now. Consultation Date/Type/Reason Admit Date/Time Jan 16, 2019 at 00:19 Date/Time of Note DATE: 01/17/19 TIME: 16:45 Hx of Present Illness Chart reviewed patient examined patient is being transferred to shelter unit to go back on hospice care. This is a very sad situation for this 58-year-old gentleman who has a long-standing history of alcohol abuse who has alcoholic liver disease with all other unfortunate stigmata. Patient was transferred to this hospital secondary to increasing shortness of breath diagnosed with hepatorenal syndrome and required 8 L of of removal by paracentesis. Multiple other stigmata associated with end-stage is documented eluding anemia hyperbilirubinemia elevated liver functions tests, decompensated cirrhosis, coagulopathy, acute kidney injury. Patient has been seen by GI. No further recommendations and patient has been seen by hospice care he is to be transferred back to shelter facility with a skinny Pleurx catheter placed for ongoing drainage of peritoneal fluid in the event that he becomes dyspneic once again. History of present illness, patient is a poor historian Past Medical History Medical History: other (Live cirrhosis, ESLD , ascites ) Home Meds Reported Medications Famotidine* (Famotidine*) 20 Mg Tablet, 20 MG PO DAILY TAKE 1 TABLET BY MOUTH ONCE DAILY 01/16/19 Hyoscyamine Sulfate* (Hyoscyamine Sulfate*) 0.125 Mg Tab.subl, 0.125 MG PO DAILY for 30 Days, #30 TAKE 1 TABLET SUBLINGUALLY EVERY 4 HOURS NEEDED FOR SECRETIONS 01/16/19 Acetaminophen* (Acetaminophen*) 325 Mg Tablet, 650 MG PO DAILY PRN for PAIN for 7 Days, #14 TAKE 2 TABLETS BY MOUTH EVERY 6 HOURS NEEDED FOR FEVER OR MILD PAIN 01/16/19 Lorazepam* (Lorazepam*) 0.5 Mg Tablet, 0.5 MG PO Q4H PRN for ANXIETY TAKE 1 TABLET SUBLINGUALLY EVERY 4 HOURS NEEDED FOR ANXIETY 01/16/19 Lactulose* (Lactulose*) 20 Gm/30 Ml Solution, 20 GM PO TID, ML 01/16/19 Fludrocortisone* (Fludrocortisone*) 0.1 Mg Tablet, 0.2 MG PO DAILY, TAB TAKE 2 TABS BY MOUTH DAILY 01/16/19 Discontinued Reported Medications Potassium Chloride* (K-Dur*) 20 Meq Tab.prt.sr, 20 MEQ PO DAILY TAKE 1 TABLET BY MOUTH ONCE DAILY 01/16/19 Furosemide* (Furosemide*) 20 Mg Tablet, 20 MG PO DAILY for 30 Days, #30 TAKE 1 TABLET BY MOUTH ONCE DAILY 01/16/19 Discontinued Scripts Ciprofloxacin Opht* (Ciloxan*) 0.3%-3.5 Opht Oint, 1 APPLIC LEFT EYE TID, #1 EA Prov:JAMES BENNETT DO 10/12/17 Hydrocodone/Acetaminophen ([place] 10-325 Tablet) 1 Each Tablet, 1 TAB PO Q6H PRN for PAIN, #20 TAB Prov:JAMES BENNETT DO 10/12/17 Amlodipine Besylate* (Norvasc*) 10 Mg Tablet, 10 MG PO DAILY, #30 TAB Prov:JAMES BENNETT DO 10/12/17 Medications Current Medications Acetaminophen (Tylenol Tab) 650 mg DAILY PRN PO PAIN; Start 01/16/19 at 04:00 Hyoscyamine (Levsin (Sl)) 0.125 mg DAILY PO Last administered on 01/16/19at 08:36; Admin Dose 0.125 MG; Start 01/16/19 at 09:00 Lorazepam (Ativan) 0.5 mg Q4H PRN PO ANXIETY; Start 01/16/19 at 04:00 Lactulose (Enulose) 30 gm Q6 PO Last administered on 01/17/19at 06:04; Admin Dose 30 GM; Start 01/16/19 at 12:00 Albumin Human 100 ml @ 100 mls/hr Q8H IV Last administered on 01/17/19at 10:42; Admin Dose 100 MLS/HR; Start 01/16/19 at 11:00; Stop 01/18/19 at 03:59 Citric Acid/ Sodium Citrate (Bicitra) 30 ml BID PO Last administered on at 20:46; Admin Dose 30 ML; Start 01/16/19 at 21:00 Phytonadione (Vitamin K) 10 mg DAILY PO ; Start 01/17/19 at 09:00; Stop 01/20/19 at 12:00 Ceftriaxone Sodium 50 ml @ 100 mls/hr Q24H IVPB Last administered on 01/17/19at 15:19; Admin Dose 100 MLS/HR; Start 01/16/19 at 15:30 Rifaximin (Xifaxan) 550 mg BID PO Last administered on 01/16/19at 20:46; Admin Dose 550 MG; Start 01/16/19 at 21:00 Ondansetron HCl (Zofran Inj) 4 mg Q4H PRN IV NAUSEA AND/OR VOMITING Last administered on 01/17/19at 08:47; Admin Dose 4 MG; Start 01/16/19 at 23:00 Famotidine (Pepcid Iv) 20 mg DAILY@0600 IV Last administered on 01/17/19at 06:10; Admin Dose 20 MG; Start 01/17/19 at 06:00 Allergies: Coded Allergies: No Known Allergy (Unverified , 01/15/19) Past Surgical History Past Surgical Hx: other (paracentesis x 2 ) Social History Alcohol Use: other (Last drink 4 months ago) Smoking Status: Former smoker Drug Use: none Exam/Review of Systems Exam Vitals Vital Signs Date Temp Pulse Resp B/P (MAP) Pulse Ox O2 O2 Flow FiO2 Time Delivery Rate 01/17/19 97.9 68 18 118/58 100 Room Air 14:00 (78) Intake and Output 01/16/19 01/16/19 01/17/19 1515:00 23:00 07:00 IntakeIntake Total 240 ml 400 ml 100 ml OutputOutput Total 200 ml BalanceBalance 240 ml 200 ml 100 ml Constitutional: alert, frail, other (Jaundiced) Head: normocephalic, atraumatic Eyes: nl conjunctiva, EOMI, nl lids, icteric Respiratory: crackles/rales, diminished breath sounds Cardiovascular: regular rate and rhythm, nl pulses Gastrointestinal: ascites, bowel sounds, other (Nontender no peritoneal signs) Extremities: other (Nontender nonedematous without clubbing cyanosis or edema) Neurological: RELIEF CHARGE NURSE II-XII intact, lethargic Results Result Diagram: 01/17/19 0454 01/17/19 0454 Results 24hrs Laboratory Tests Test 01/16/19 19:02 01/17/19 04:54 01/17/19 06:34 White Blood Count 13.3 H 15.7 H Red Blood Count 3.59 #L 3.60 L Hemoglobin 10.2 #L 10.4 L Hematocrit 29.2 #L 29.5 L Mean Corpuscular Volume 81.3 L 81.9 L Mean Corpuscular Hemoglobin 28.4 L 28.9 L Mean Corpuscular 34.9 35.3 Hemoglobin Concent Red Cell Distribution Width 17.1 H 17.3 H Platelet Count 101 L 97 L Mean Platelet Volume 11.4 H 11.2 H Immature Granulocytes % 0.500 H 0.600 H Neutrophils % 61.8 80.2 H Lymphocytes % 24.5 10.6 L Monocytes % 10.9 8.1 Eosinophils % 1.8 0.2 Basophils % 0.5 0.3 Nucleated Red Blood Cells % 0.0 0.0 Immature Granulocytes # 0.070 H 0.090 H Neutrophils # 8.2 H 12.6 H Lymphocytes # 3.3 H 1.7 Monocytes # 1.5 H 1.3 H Eosinophils # 0.2 0.0 Basophils # 0.1 0.1 Nucleated Red Blood Cells # 0.0 0.0 Sodium Level 143 Potassium Level 4.4 Chloride Level 112 H Carbon Dioxide Level 15 L Anion Gap 16 H Blood Urea Nitrogen 47 H Creatinine 4.95 H Est Glomerular Filtrat 12 L Rate mL/min Glucose Level 123 Calcium Level 8.9 Phosphorus Level 6.6 H Magnesium Level 2.7 H Total Bilirubin 5.2 #H Direct Bilirubin 2.90 #H Indirect Bilirubin 2.3 H Aspartate Amino 90 H Transf (AST/SGOT) Alanine 34 Aminotransferase (ALT/SGPT) Alkaline Phosphatase 142 H Total Protein 6.8 Albumin 3.2 L Globulin 3.60 H Albumin/Globulin Ratio 0.88 Lab Scanned Report BLOOD TRANSFUSION Medications Medication Current Medications Acetaminophen (Tylenol Tab) 650 mg DAILY PRN PO PAIN; Start 01/16/19 at 04:00 Hyoscyamine (Levsin (Sl)) 0.125 mg DAILY PO Last administered on 01/16/19at 08 :36; Admin Dose 0.125 MG; Start 01/16/19 at 09:00 Lorazepam (Ativan) 0.5 mg Q4H PRN PO ANXIETY; Start 01/16/19 at 04:00 Lactulose (Enulose) 30 gm Q6 PO Last administered on 01/17/19at 06:04; Admin Do se 30 GM; Start 01/16/19 at 12:00 Albumin Human 100 ml @ 100 mls/hr Q8H IV Last administered on 01/17/19at 10:42; Admin Dose 100 MLS/HR; Start 01/16/19 at 11:00; Stop 01/18/19 at 03:59 Citric Acid/ Sodium Citrate (Bicitra) 30 ml BID PO Last administered on 01/16/19at 20:46; Admin Dose 30 ML; Start 01/16/19 at 21:00 Phytonadione (Vitamin K) 10 mg DAILY PO ; Start 01/17/19 at 09:00; Stop 01/20/19 at 12:00 Ceftriaxone Sodium 50 ml @ 100 mls/hr Q24H IVPB Last administered on 01/17/19at 15:19; Admin Dose 100 MLS/HR; Start 01/16/19 at 15:30 Rifaximin (Xifaxan) 550 mg BID PO Last administered on 01/16/19at 20:46; Admin Dose 550 MG; Start 01/16/19 at 21:00 Ondansetron HCl (Zofran Inj) 4 mg Q4H PRN IV NAUSEA AND/OR VOMITING Last administered on 01/17/19at 08:47; Admin Dose 4 MG; Start 01/16/19 at 23:00 Famotidine (Pepcid Iv) 20 mg DAILY@0600 IV Last administered on 01/17/19at 06:10; Admin Dose 20 MG; Start 01/17/19 at 06:00 LIANET WINSTON Jan 17, 2019 16:49
== END 2019-01-17 16:45 | DRG 432 ==
LOC: E/R 20:17 → PP2 01-16 00:19
PROVIDERS: ADMIT Internal Medicine; ATTEND Internal Medicine
PROC: 0W9G30Z Drainage of Peritoneal Cavity with Drainage Device, Percutaneous Approach (ICD-10-PCS; principal; 2019-01-15)
PROC: 30233N1 Transfusion of Nonautologous Red Blood Cells into Peripheral Vein, Percutaneous Approach (ICD-10-PCS; 2019-01-15)
DX: K70.31 Alcoholic cirrhosis of liver with ascites (principal); K76.7 Hepatorenal syndrome; D68.4 Acquired coagulation factor deficiency; N17.9 Acute kidney failure, unspecified; R64 Cachexia; E87.2 Acidosis; R65.10 Systemic inflammatory response syndrome (SIRS) of non-infectious origin without acute organ dysfunction; D64.9 Anemia, unspecified; Z68.27 Body mass index [BMI] 27.0-27.9, adult; I95.9 Hypotension, unspecified; N18.9 Chronic kidney disease, unspecified; R11.2 Nausea with vomiting, unspecified
CPT/HCPCS: 36415; 36430; 71045; 80053; 80307; 81003; 82140; 83690; 83735; 84100; 85025; 85610; 85730; 86850; 86900; 86901; 86920; 87070; 87102; 87116; 89051; C9113; J0696; J2405; P9016; P9047